=== PATIENT | male | born 1945 | race Caucasian/White ===

== ENCOUNTER 2019-06-01 00:36 | Inpatient (IN) | payer MEDICARE ==
[2019-06-01] MEDS ORDERED: ONDANSETRON 4 MG/2 ML VIAL IVP STA (01:20)
[2019-06-01] MEDS ORDERED: HYDROmorphone 0.5 MG/0.5 ML SYRINGE IVP STA (01:20)
[2019-06-01] MEDS ORDERED: SODIUM CHLORIDE 0.9% 1,000 ML IV STA (01:20)
[2019-06-01 02:12] LABS: Basophils # (A) 0.1 k/uL (0-0.2); Basophils % (A) 1 %; Eosinophils # (A) 0.4 k/uL (0-0.7); Eosinophils % (A) 3 %; HCT 44.8 % (39.0-53.0); HGB 14.1 gm/dL (13.0-17.5); Lymphocytes # (A) 1.7 k/uL (1.0-4.8); Lymphocytes % (A) 14 %; MCH 31.8 pg (25.0-35.0); MCHC 31.4 g/dL (31.0-37.0); MCV 101.2 fL (80.0-100.0); Macrocytosis Slight; Mean Platelet Volume 6.9; Monocytes # (A) 0.7 k/uL (0-1.0); Monocytes % (A) 6 %; Neutrophils # (A) 8.9 k/uL (1.3-7.7); Neutrophils % (A) 75 %; Platelet Count 291 k/uL (150-450); RBC 4.43 m/uL (4.30-5.90); WBC 11.9 k/uL (3.8-10.6)
[2019-06-01 02:20] LABS: Appearance,Urine Clear (Clear); Bilirubin,Urine Negative (Negative); Blood,Urine Negative (Negative); Color,Urine Light Yellow; Glucose,Urine (UA) Negative (Negative); Hyaline Casts,Urine 4 /lpf (0-2); Ketones,Urine Negative (Negative); Leukocyte Esterase,Urine Trace (Negative); Mucus,Urine Rare /hpf; Nitrite,Urine Negative (Negative); PH, Urine 6.5 (5.0-8.0); Protein,Urine Negative (Negative); RBC,Urine 1 /hpf (0-5); Specific Gravity,Urine 1.009 (1.001-1.035); Squamous Epithelial Cell,Urine 1 /hpf (0-4); Urobilinogen,Urine <2.0 mg/dL (<2.0); WBC,Urine 2 /hpf (0-5)
[2019-06-01 02:22] LABS: African American GFR (CKD) >90 (>60 ml/min/1.73 sqM); Amylase 91 U/L (30-110); Anion Gap 11 mmol/L; Blood Urea Nitrogen 17 mg/dL (9-20); Calcium 9.6 mg/dL (8.4-10.2); Carbon Dioxide 22 mmol/L (22-30); Chloride 102 mmol/L (98-107); Glucose 112 mg/dL (74-99); Sodium 135 mmol/L (137-145); Total Bilirubin 0.5 mg/dL (0.2-1.3)
[2019-06-01 02:33] LABS: ALT 24 U/L (21-72); AST 29 U/L (17-59); Albumin 4.2 g/dL (3.5-5.0); Alkaline Phosphatase 53 U/L (38-126); Potassium 4.6 mmol/L (3.5-5.1); Total Protein 7.1 g/dL (6.3-8.2)
--- NOTE | 2019-06-01 03:04 | CT ---
EXAMINATION TYPE: CT abdomen pelvis w con DATE OF EXAM: 06/01/2019 COMPARISON: 05/30/2014 HISTORY: Abd pain CT DLP: 940.30 mGycm Automated exposure control for dose reduction was used. TECHNIQUE: Helical acquisition of images was performed from the lung bases through the pelvis. CONTRAST: Performed without Oral Contrast and with IV Contrast, patient injected with 100 mL of Isovue 300. FINDINGS: There is minimal subsegmental atelectasis right lung base. There is no pleural effusion. Heart size i s normal. There is a 1 cm cyst left lobe of the liver. The bile ducts are not dilated. Gallbladder ap pears normal. Stomach is mildly dilated with fluid. Spleen appears normal. There is no pancreatic mas s. There is no adrenal mass. Kidneys show satisfactory contrast opacification. There is no hydronephr osis. Bladder distends smoothly. There is dense prostatic calcification. There is left hip prosthesis . There are air bubbles in the right inguinal region. Is not clear if there is small bowel herniation . I do not believe that there is an incarcerated inguinal hernia. There is slight increased density o n the right side in the right inguinal region. There are numerous dilated fluid-filled loops of small bowel in the mid abdomen. Small bowel dilated up to 3.5 cm. Terminal ileum is not dilated. Appendix appears normal. Transition point not definitely identified. There is no evidence of pneumoperitoneum. There is no ascites. There is 20% depression s uperior endplate of L1 vertebra that appears old. There is slight flattening of the articular surface of the right femoral head consistent with chronic avascular necrosis. There is right hip joint space narrowing. IMPRESSION: THERE IS DILATED SMALL BOWEL SUGGESTIVE OF A DISTAL MECHANICAL SMALL BOWEL OBSTRUCTION. TRANSITION PO INT NOT DEFINITELY LOCALIZED. NORMAL APPENDIX. Increased right inguinal density could relate to scar tissue and hernia surgery. Correlation with history needed.
--- NOTE | 2019-06-01 04:01 | ED ---
Abdominal Pain HPI - General Source: patient Mode of arrival: ambulatory Limitations: no limitations <Iona Hugo - Last Filed: 06/01/19 03:58> <Christa Galvan - Last Filed: 06/01/19 06:25> - General Chief Complaint: Abdominal Pain Stated Complaint: Abdominal Pain Time Seen by Provider: 06/01/19 00:53 - History of Present Illness Initial Comments: 74-year-old male patient presents to the emergency department today for evaluation of abdominal pain. Patient states that over the last couple of days he has been having increasing abdominal pain. States he did give himself a suppository today and had a bowel movement. States he has been passing flatus. States he has had some nausea but no vomiting. States he is eating without difficulty. Patient underwent right inguinal hernia surgery 2 weeks ago in [place] with a Dr. Eli. He denies any fever or chills. Denies any pain or drainage from the incision site. Patient denies any recent rash, shortness breath, chest pain, back pain, numbness, tingling, dizziness, weakness, hematuria, dysuria, urinary urgency, urinary frequency, headache, visual changes, or any other complaints. (Iona Hugo) - Related Data Home Medications Medication Instructions Recorded Confirmed Alfuzosin HCl [Alfuzosin HCl ER] 10 mg PO HS 03/28/16 06/01/19 Aspirin [Adult Low Dose Aspirin EC] 81 mg PO DAILY 03/28/16 06/01/19 Calcium Carbonate [Calcium] 600 mg PO DAILY 03/28/16 06/01/19 Finasteride 5 mg PO HS 03/28/16 06/01/19 Glucosam/Chond/Hyalu/Cf Borate 1 tab PO DAILY 03/28/16 06/01/19 [Move Free Joint Health Tablet] Lisinopril 40 mg PO QAM 03/28/16 06/01/19 Allergies Allergy/AdvReac Type Severity Reaction Status Date / Time No Known Allergies Allergy Verified 03/31/16 09:13 Review of Systems ROS Other: All systems not noted in ROS Statement are negative. <Iona Hugo - Last Filed: 06/01/19 03:58> ROS Other: All systems not noted in ROS Statement are negative. <Christa Galvan - Last Filed: 06/01/19 06:25> ROS Statement: Those systems with pertinent positive or pertinent negative responses have been documented in the HPI. Past Medical History Past Medical History: Hyperlipidemia, Hypertension, Prostate Disorder History of Any Multi-Drug Resistant Organisms: None Reported Past Surgical History: Hernia Repair, Joint Replacement Additional Past Surgical History / Comment(s): TOTAL LEFT HIP Past Anesthesia/Blood Transfusion Reactions: No Reported Reaction Past Psychological History: No Psychological Hx Reported Smoking Status: Former smoker Past Alcohol Use History: Daily Past Drug Use History: None Reported <Iona Hugo - Last Filed: 06/01/19 03:58> General Exam Limitations: no limitations General appearance: alert, in no apparent distress, other (This is a well- developed, well-nourished elderly male patient in no acute distress. Vital sign s upon presentation are temperature 97.4F, pulse 104, respirations 20, blood pressure 105/74, pulse ox 99% on room air.) Eye exam: Present: normal appearance, PERRL, EOMI. Absent: scleral icterus, conjunctival injection, periorbital swelling ENT exam: Present: normal exam, normal oropharynx, mucous membranes moist Respiratory exam: Present: normal lung sounds bilaterally. Absent: respiratory distress, wheezes, rales, rhonchi, stridor Cardiovascular Exam: Present: regular rate, normal rhythm, normal heart sounds. Absent: systolic murmur, diastolic murmur, rubs, gallop, clicks GI/Abdominal exam: Present: soft, tenderness, normal bowel sounds. Absent: distended, guarding, rebound, rigid Neurological exam: Present: alert, oriented X3, CN II-XII intact Psychiatric exam: Present: normal affect, normal mood Skin exam: Present: warm, dry, intact, normal color. Absent: rash <Iona Hugo - Last Filed: 06/01/19 03:58> Course Vital Signs 06/01/19 06/01/19 06/01/19 00:45 01:45 03:03 Temperature 97.4 F L 97.2 F L 97.1 F L Pulse Rate 104 H 83 77 Respiratory 20 16 16 Rate Blood Pressure 105/74 112/74 123/74 O2 Sat by Pulse 99 97 94 L Oximetry 06/01/19 06/01/19 04:32 05:45 Temperature 97.5 F L 97.9 F Pulse Rate 85 73 Respiratory 16 16 Rate Blood Pressure 127/71 116/79 O2 Sat by Pulse 96 96 Oximetry Medical Decision Making - Lab Data Result diagrams: 06/01/19 01:03 06/01/19 01:03 - Radiology Data Radiology results: report reviewed, image reviewed <Iona Hugo Pily - Last Filed: 06/01/19 03:58> - Lab Data Result diagrams: 06/01/19 01:03 06/01/19 01:03 <Christa Galvan - Last Filed: 06/01/19 06:25> - Medical Decision Making I personally saw and evaluated this patient. This is a merged [facility] 74-year-old gentleman who underwent an inguinal hernia repair while on vacation 2 weeks ago [place] this again. Patient presenting today with abdominal pain, labs are relatively unremarkable the computed tomography scan is suggestive of a possible distal mechanical small bowel obstruction. No transition point is identified. Patient is not vomiting. At this point I do feel the patient can be treated conservatively with nothing by mouth and IV fluids. Patient is agreeable to this. Patient would prefer very much not to be transferred to [place] as he doesn't have any established care at their aside from the emergency surgery he had 2 weeks ago. Patient care was discussed with surgeon acute care occupational therapist Dr. Seo who agrees with plan for admission here to medicine he will be on consult for any surgical needs. Multiple attempts were made to contact Dr. Giuseppe Crawford, however we were unsuccessful, therefore the patient will be admitted to the [facility] hospitalist group (Christa Galvan) - Lab Data Lab Results 06/01/19 06/01/19 06/01/19 Range/Units 01:03 01:03 01:03 WBC 11.9 H (3.8-10.6) k/uL RBC 4.43 (4.30-5.90) m/uL Hgb 14.1 (13.0-17.5) gm/dL Hct 44.8 (39.0-53.0) % MCV 101.2 H (80.0-100.0) fL MCH 31.8 (25.0-35.0) pg MCHC 31.4 (31.0-37.0) g/dL RDW 13.0 (11.5-15.5) % Plt Count 291 (150-450) k/uL Neutrophils % 75 % Lymphocytes % 14 % Monocytes % 6 % Eosinophils % 3 % Basophils % 1 % Neutrophils # 8.9 H (1.3-7.7) k/uL Lymphocytes # 1.7 (1.0-4.8) k/uL Monocytes # 0.7 (0-1.0) k/uL Eosinophils # 0.4 (0-0.7) k/uL Basophils # 0.1 (0-0.2) k/uL Macrocytosis Slight Sodium 135 L (137-145) mmol/L Potassium 4.6 (3.5-5.1) mmol/L Chloride 102 (98-107) mmol/L Carbon Dioxide 22 (22-30) mmol/L Anion Gap 11 mmol/L BUN 17 (9-20) mg/dL Creatinine 0.75 (0.66-1.25) mg/dL Est GFR (CKD-EPI)AfAm >90 (>60 ml/min/1.73 sqM) Est GFR (CKD-EPI)NonAf 90 (>60 ml/min/1.73 sqM) Glucose 112 H (74-99) mg/dL Plasma Lactic Acid Jovanny 1.0 (0.7-2.0) mmol/L Calcium 9.6 (8.4-10.2) mg/dL Total Bilirubin 0.5 (0.2-1.3) mg/dL AST 29 (17-59) U/L ALT 24 (21-72) U/L Alkaline Phosphatase 53 (38-126) U/L Total Protein 7.1 (6.3-8.2) g/dL Albumin 4.2 (3.5-5.0) g/dL Amylase 91 (30-110) U/L Lipase 114 (23-300) U/L Urine Color Urine Appearance (Clear) Urine pH (5.0-8.0) Ur Specific [place] (1.001-1.035) Urine Protein (Negative) Urine Glucose (UA) (Negative) Urine Ketones (Negative) Urine Blood (Negative) Urine Nitrite (Negative) Urine Bilirubin (Negative) Urine Urobilinogen (<2.0) mg/dL Ur Leukocyte Esterase (Negative) Urine RBC (0-5) /hpf Urine WBC (0-5) /hpf Ur Squamous Epith Cells (0-4) /hpf Hyaline Casts (0-2) /lpf Urine Mucus (None) /hpf 06/01/19 Range/Units 01:03 WBC (3.8-10.6) k/uL RBC (4.30-5.90) m/uL Hgb (13.0-17.5) gm/dL Hct (39.0-53.0) % MCV (80.0-100.0) fL MCH (25.0-35.0) pg MCHC (31.0-37.0) g/dL RDW (11.5-15.5) % Plt Count (150-450) k/uL Neutrophils % % Lymphocytes % % Monocytes % % Eosinophils % % Basophils % % Neutrophils # (1.3-7.7) k/uL Lymphocytes # (1.0-4.8) k/uL Monocytes # (0-1.0) k/uL Eosinophils # (0-0.7) k/uL Basophils # (0-0.2) k/uL Macrocytosis Sodium (137-145) mmol/L Potassium (3.5-5.1) mmol/L Chloride (98-107) mmol/L Carbon Dioxide (22-30) mmol/L Anion Gap mmol/L BUN (9-20) mg/dL Creatinine (0.66-1.25) mg/dL Est GFR (CKD-EPI)AfAm (>60 ml/min/1.73 sqM) Est GFR (CKD-EPI)NonAf (>60 ml/min/1.73 sqM) Glucose (74-99) mg/dL Plasma Lactic Acid Jovanny (0.7-2.0) mmol/L Calcium (8.4-10.2) mg/dL Total Bilirubin (0.2-1.3) mg/dL AST (17-59) U/L ALT (21-72) U/L Alkaline Phosphatase (38-126) U/L Total Protein (6.3-8.2) g/dL Albumin (3.5-5.0) g/dL Amylase (30-110) U/L Lipase (23-300) U/L Urine Color Light Yellow Urine Appearance Clear (Clear) Urine pH 6.5 (5.0-8.0) Ur Specific [place] 1.009 (1.001-1.035) Urine Protein Negative (Negative) Urine Glucose (UA) Negative (Negative) Urine Ketones Negative (Negative) Urine Blood Negative (Negative) Urine Nitrite Negative (Negative) Urine Bilirubin Negative (Negative) Urine Urobilinogen <2.0 (<2.0) mg/dL Ur Leukocyte Esterase Trace H (Negative) Urine RBC 1 (0-5) /hpf Urine WBC 2 (0-5) /hpf Ur Squamous Epith Cells 1 (0-4) /hpf Hyaline Casts 4 H (0-2) /lpf Urine Mucus Rare H (None) /hpf - Radiology Data CT abdomen and pelvis with contrast is obtained. Report was reviewed in its entirety. Impression by Dr. Potts shows dilated small bowel suggestive of a distal mechanical small bowel obstruction. Transition point not definitely localize. Normal appendix. Increase right inguinal density could relate to sca r tissue and hernia surgery. Correlation with history needed. (Iona Hugo) Disposition <Iona Hugo - Last Filed: 06/01/19 03:58> Is patient prescribed a controlled substance at d/c from ED?: No <Christa Galvan - Last Filed: 06/01/19 06:25> Clinical Impression: SBO (small bowel obstruction) Disposition: ADMITTED IP TO THIS HOSP Condition: Stable Referrals: Diamond Crawford DO [Primary Care Provider] - 1-2 days
[2019-06-01] MEDS ORDERED: HYDROmorphone 1 MG/ML 1 ML SYRINGE IVP STA (04:26)
[2019-06-01] MEDS ORDERED: ONDANSETRON 4 MG/2 ML VIAL IVP PRN (06:04)
[2019-06-01] MEDS ORDERED: NALOXONE 0.4 MG/ML 1 ML VIAL IV PRN (06:04)
[2019-06-01] MEDS ORDERED: HYDROmorphone 0.5 MG/0.5 ML SYRINGE IVP PRN (06:04)
[2019-06-01] MEDS: SODIUM CHLORIDE 0.9% 1,000 ML IV SCH ×2 (06:18→16:31)
--- NOTE | 2019-06-01 09:05 | P.GSCN ---
History of Present Illness Consult date: 06/01/19 Reason for Consult: Small bowel obstruction History of present illness: This is a 74-year-old male who was admitted through the emergency room with complaints of a small bowel obstruction. Patient underwent previous right open inguinal hernia surgery in [facility] approximately 2 weeks ago. He states that he had an incarcerated hernia while playing golf at that time. Patient states he has had some abdominal pain distention and nausea last night. His CAT scan shows evidence of a possible partial small bowel obstruction. Patient had a bowel movement yesterday. Past Medical History Past Medical History: Hyperlipidemia, Hypertension, Prostate Disorder History of Any Multi-Drug Resistant Organisms: None Reported Past Surgical History: Hernia Repair, Joint Replacement Additional Past Surgical History / Comment(s): TOTAL LEFT HIP Past Anesthesia/Blood Transfusion Reactions: No Reported Reaction Past Psychological History: No Psychological Hx Reported Smoking Status: Former smoker Past Alcohol Use History: Daily Additional Past Alcohol Use History / Comment(s): DRINKS BEER DAILY. SMOKED FOR OVER 40 YRS, 1PPD, QUIT SEVERAL YEARS AGO. Past Drug Use History: None Reported - Past Family History Mother Family Medical History: Cancer Additional Family Medical History / Comment(s): lung cancer Medications and Allergies Home Medications Medication Instructions Recorded Confirmed Type Alfuzosin HCl [Alfuzosin HCl ER] 10 mg PO HS 03/28/16 06/01/19 History Aspirin [Adult Low Dose Aspirin EC] 81 mg PO DAILY 03/28/16 06/01/19 History Calcium Carbonate [Calcium] 600 mg PO DAILY 03/28/16 06/01/19 History Finasteride 5 mg PO HS 03/28/16 06/01/19 History Lisinopril 40 mg PO QAM 03/28/16 06/01/19 History Allergies Allergy/AdvReac Type Severity Reaction Status Date / Time No Known Allergies Allergy Verified 06/01/19 07:48 Surgical - Exam Vital Signs Temp Pulse Resp BP Pulse Ox 97.4 F L 104 H 20 105/74 99 06/01/19 00:45 06/01/19 00:45 06/01/19 00:45 06/01/19 00:45 06/01/19 00:45 - General well developed, well nourished, no distress - Eyes PERRL - ENT normal pinna - Neck no masses - Respiratory normal expansion - Cardiovascular Rhythm: regular - Abdomen Healing incision right inguinal area Abdomen: soft, non tender Results - Labs 06/01/19 01:03 06/01/19 01:03 Abnormal Lab Results - Last 24 Hours (Table) 06/01/19 06/01/19 06/01/19 Range/Units 01:03 01:03 01:03 WBC 11.9 H (3.8-10.6) k/uL MCV 101.2 H (80.0-100.0) fL Neutrophils # 8.9 H (1.3-7.7) k/uL Sodium 135 L (137-145) mmol/L Glucose 112 H (74-99) mg/dL Ur Leukocyte Esterase Trace H (Negative) Hyaline Casts 4 H (0-2) /lpf Urine Mucus Rare H (None) /hpf Diabetes panel 06/01/19 Range/Units 01:03 Sodium 135 L (137-145) mmol/L Potassium 4.6 (3.5-5.1) mmol/L Chloride 102 (98-107) mmol/L Carbon Dioxide 22 (22-30) mmol/L BUN 17 (9-20) mg/dL Creatinine 0.75 (0.66-1.25) mg/dL Glucose 112 H (74-99) mg/dL Calcium 9.6 (8.4-10.2) mg/dL AST 29 (17-59) U/L ALT 24 (21-72) U/L Alkaline Phosphatase 53 (38-126) U/L Total Protein 7.1 (6.3-8.2) g/dL Albumin 4.2 (3.5-5.0) g/dL Calcium panel 06/01/19 Range/Units 01:03 Calcium 9.6 (8.4-10.2) mg/dL Albumin 4.2 (3.5-5.0) g/dL Pituitary panel 06/01/19 Range/Units 01:03 Sodium 135 L (137-145) mmol/L Potassium 4.6 (3.5-5.1) mmol/L Chloride 102 (98-107) mmol/L Carbon Dioxide 22 (22-30) mmol/L BUN 17 (9-20) mg/dL Creatinine 0.75 (0.66-1.25) mg/dL Glucose 112 H (74-99) mg/dL Calcium 9.6 (8.4-10.2) mg/dL Adrenal panel 06/01/19 Range/Units 01:03 Sodium 135 L (137-145) mmol/L Potassium 4.6 (3.5-5.1) mmol/L Chloride 102 (98-107) mmol/L Carbon Dioxide 22 (22-30) mmol/L BUN 17 (9-20) mg/dL Creatinine 0.75 (0.66-1.25) mg/dL Glucose 112 H (74-99) mg/dL Calcium 9.6 (8.4-10.2) mg/dL Total Bilirubin 0.5 (0.2-1.3) mg/dL AST 29 (17-59) U/L ALT 24 (21-72) U/L Alkaline Phosphatase 53 (38-126) U/L Total Protein 7.1 (6.3-8.2) g/dL Albumin 4.2 (3.5-5.0) g/dL Assessment and Plan Assessment: Ileus versus partial small bowel obstruction. Patient be observed. He'll remain on ice chips today.
--- NOTE | 2019-06-01 09:12 | P.HPIM ---
History of Present Illness 74-year-old male came in with a diffuse nonspecific mild to moderate abdominal pain and diarrhea with some nausea without any vomiting. Patient had a CAT scan of the abdomen which was read as mechanical bowel obstruction clinically patient appears to have ileus. Patient was constipated for 2 days after his right inguinal hernia repair and after that patient try to use any mask started having diarrhea patient denied any fever chills body aches. Patient presently doesn't have any nausea patient will be started on ice chips and popsicles as recommended by surgery patient denied any dysuria patient denied any cough. Review of Systems REVIEW OF SYSTEMS: CONSTITUTIONAL: No fever, no malaise, no fatigue. HEENT: No recent visual problems or hearing problems. Denied any sore throat. CARDIOVASCULAR: No chest pain, orthopnea, PND, no palpitations, no syncope. PULMONARY: No shortness of breath, no cough, no hemoptysis. GASTROINTESTINAL: As mentioned in HPI NEUROLOGICAL: No headaches, no weakness, no numbness. HEMATOLOGICAL: Denies any bleeding or petechiae. GENITOURINARY: Denies any burning micturition, frequency, or urgency. MUSCULOSKELETAL/RHEUMATOLOGICAL: Denies any joint pain, swelling, or any muscle pain. ENDOCRINE: Denies any polyuria or polydipsia. The rest of the 14-point review of systems is negative. Past Medical History Past Medical History: Hyperlipidemia, Hypertension, Prostate Disorder History of Any Multi-Drug Resistant Organisms: None Reported Past Surgical History: Hernia Repair, Joint Replacement Additional Past Surgical History / Comment(s): TOTAL LEFT HIP Past Anesthesia/Blood Transfusion Reactions: No Reported Reaction Past Psychological History: No Psychological Hx Reported Smoking Status: Former smoker Past Alcohol Use History: Daily Additional Past Alcohol Use History / Comment(s): DRINKS BEER DAILY. SMOKED FOR OVER 40 YRS, 1PPD, QUIT SEVERAL YEARS AGO. Past Drug Use History: None Reported - Past Family History Mother Family Medical History: Cancer Additional Family Medical History / Comment(s): lung cancer Medications and Allergies Home Medications Medication Instructions Recorded Confirmed Type Alfuzosin HCl [Alfuzosin HCl ER] 10 mg PO HS 03/28/16 06/01/19 History Aspirin [Adult Low Dose Aspirin EC] 81 mg PO DAILY 03/28/16 06/01/19 History Calcium Carbonate [Calcium] 600 mg PO DAILY 03/28/16 06/01/19 History Finasteride 5 mg PO HS 03/28/16 06/01/19 History Lisinopril 40 mg PO QAM 03/28/16 06/01/19 History Allergies Allergy/AdvReac Type Severity Reaction Status Date / Time No Known Allergies Allergy Verified 06/01/19 07:48 Physical Exam Vitals: Vital Signs Temp Pulse Pulse Resp BP BP Pulse Ox 06/01/19 07:00 98.3 F 77 16 91/66 96 06/01/19 05:45 97.9 F 73 16 116/79 96 06/01/19 04:32 97.5 F L 85 16 127/71 96 06/01/19 03:03 97.1 F L 77 16 123/74 94 L 06/01/19 01:45 97.2 F L 83 16 112/74 97 06/01/19 00:45 97.4 F L 104 H 20 105/74 99 Intake and Output 05/31/19 06/01/19 06/01/19 22:59 06:59 14:59 Other: Weight 72.575 kg PHYSICAL EXAMINATION: GENERAL: The patient is alert and oriented x3, not in any acute distress. Well developed, well nourished. HEENT: Pupils are round and equally reacting to light. EOMI. No scleral icterus. No conjunctival pallor. Normocephalic, atraumatic. No pharyngeal erythema. No thyromegaly. CARDIOVASCULAR: S1 and S2 present. No murmurs, rubs, or gallops. PULMONARY: Chest is clear to auscultation, no wheezing or crackles. ABDOMEN: Eyelid distended no significant tenderness does have good bowel sounds MUSCULOSKELETAL: No joint swelling or deformity. EXTREMITIES: No cyanosis, clubbing, or pedal edema. NEUROLOGICAL: Gross neurological examination did not reveal any focal deficits. SKIN: No rashes. Results CBC & Chem 7: 06/01/19 01:03 06/01/19 01:03 Labs: Abnormal Lab Results - Last 24 Hours (Table) 06/01/19 06/01/19 06/01/19 Range/Units 01:03 01:03 01:03 WBC 11.9 H (3.8-10.6) k/uL MCV 101.2 H (80.0-100.0) fL Neutrophils # 8.9 H (1.3-7.7) k/uL Sodium 135 L (137-145) mmol/L Glucose 112 H (74-99) mg/dL Ur Leukocyte Esterase Trace H (Negative) Hyaline Casts 4 H (0-2) /lpf Urine Mucus Rare H (None) /hpf Thrombosis Risk Factor Assmnt - Choose All That Apply Any of the Below Risk Factors Present?: Yes Each Factor Represents 1 point: History of prior major surgery (<1month) Other Risk Factors: Yes Each Risk Factor Represents 2 Points: Age 61-74 years Thrombosis Risk Factor Assessment Total Risk Factor Score: 3 Thrombosis Risk Factor Assessment Level: Moderate Risk Assessment and Plan Plan: -Ileus: Patient will be treated conservatively with IV fluids this can you Dilaudid and patient was started on Toradol for pain as well as GI prophylaxis. Since patient has a bowel sounds I'm expecting his he is to improve by tomorrow. -Gastroesophageal reflux disease for which start him on high -Hypertension: Patient blood pressures low because of which for now and hold off his antidepressive medications these will be started depending on his vitals during this hospitalization -Benign prostatic hypertrophy -Hyperlipidemia 7 DVT prophylaxis early ambulation
[2019-06-01] MEDS: PANTOPRAZOLE 40 MG/10 ML VIAL IVP SCH (09:53)
[2019-06-01] MEDS: ASPIRIN 81 MG PO SCH (09:53)
[2019-06-01] MEDS: KETOROLAC 30 MG/ML 1 ML VIAL IVP PRN ×2 (10:23→19:43)
[2019-06-01] MEDS: TAMSULOSIN 0.4 MG CAP.ER.24H PO SCH (19:43)
[2019-06-01] MEDS: FINASTERIDE 5 MG TAB PO SCH (19:44)
[2019-06-02] MEDS: KETOROLAC 30 MG/ML 1 ML VIAL IVP PRN ×3 (02:04→20:59)
[2019-06-02] MEDS: SODIUM CHLORIDE 0.9% 1,000 ML IV SCH ×2 (02:05→11:11)
[2019-06-02 07:10] LABS: African American GFR (CKD) >90 (>60 ml/min/1.73 sqM); Anion Gap 6 mmol/L; Blood Urea Nitrogen 16 mg/dL (9-20); Calcium 8.4 mg/dL (8.4-10.2); Carbon Dioxide 22 mmol/L (22-30); Chloride 107 mmol/L (98-107); Glucose 85 mg/dL (74-99); Potassium 4.2 mmol/L (3.5-5.1); Sodium 135 mmol/L (137-145)
[2019-06-02 07:15] LABS: HCT 36.9 % (39.0-53.0); HGB 12.1 gm/dL (13.0-17.5); MCH 33.7 pg (25.0-35.0); MCHC 32.8 g/dL (31.0-37.0); MCV 102.7 fL (80.0-100.0); Macrocytosis Slight; Mean Platelet Volume 5.7; Platelet Count 221 k/uL (150-450); RBC 3.59 m/uL (4.30-5.90); RDW 12.5 % (11.5-15.5); WBC 5.9 k/uL (3.8-10.6)
[2019-06-02] MEDS: ASPIRIN 81 MG PO SCH (07:26)
[2019-06-02] MEDS: PANTOPRAZOLE 40 MG/10 ML VIAL IVP SCH (07:26)
--- NOTE | 2019-06-02 08:58 | P.PN ---
Progress Note - Text Progress Note Date: 06/02/19 The patient still has some complaints of crampy pain. He did have some flatus. On exam his vital signs are stable. His abdomen is soft. There is less distention than yesterday. There is no rebound or guarding. Possible partial small bowel charge. Patient will undergo computed tomography s can with oral contrast to evaluate his obstruction.
[2019-06-02] MEDS: IOPAMIDOL CONTRAST (ORAL USE) VIAL PO PRN ×2 (09:20→10:13)
--- NOTE | 2019-06-02 11:11 | CT ---
EXAMINATION TYPE: CT abdomen pelvis wo con DATE OF EXAM: 06/02/2019 COMPARISON: Previous study dated 06/01/2019 HISTORY: Small Bowel Obstruction CT DLP: 625 mGycm Automated exposure control for dose reduction was used. FINDINGS: There are tiny, bilateral pleural effusions, greater on the right than the left. There is a ssociated atelectatic change. Visualized portions of the lungs are otherwise clear. There is no peric ardial fluid. The heart is not enlarged. There is a small sliding hiatal hernia. Within the abdomen, there is a small amount of ascites. This has worsened slightly from the previous study. The liver, spleen and gallbladder are unremarkable. Both adrenal glands appear normal. There is no hydronephrosis or nephrolithiasis. Limited views of the pancreas are unremarkable. There is atheromatous irregularity and calcific of the visualized arterial tree. There is no signific ant retroperitoneal or inguinal adenopathy. There is a left hip prosthesis in place. This is causing streak artifact within the pelvis. There are multiple metallic densities in the region of the prostate gland. I could not exclude prostate seeds. There is no significant diverticular change and there is no radiographic evidence of diverticulitis. The appendix is not visualized with certainty. There continue to be dilated loops of small bowel distally. These have improved significantly from pr evious. There are several gas bubbles present in the right inguinal canal. There is a direct inguinal hernia on the left containing fat which is mildly indurated. There are moderate degenerative changes within the right hip. There is degenerative disc disease and facet arthropathy in the lower lumbar spine. IMPRESSION: 1. IMPROVEMENT IN THE DEGREE OF SMALL BOWEL DILATATION. 2. SMALL AMOUNT OF AIR WITHIN THE RIGHT INGUINAL CANAL OF QUESTIONABLE ETIOLOGY. 3. SMALL, BILATERAL EFFUSIONS. 4. SMALL AMOUNT OF ASCITES. 5. SMALL HIATAL HERNIA. 6. DIRECT INGUINAL HERNIA ON THE LEFT CONTAINING FAT ONLY.
--- NOTE | 2019-06-02 14:19 | P.PN ---
Subjective 69-year-old male was admitted for ileus passing as did not move his bowel get. Patient is on IV fluids which will discontinue patient is being started on liquid diet. Patient had a repeat CAT scan which showed improvement in his ileus Constitutional: Denied any fatigue denied any fever. Cardio vascular: denied any chest pain, palpitations Gastrointestinal denied any nausea vomiting Pulmonary: Denied any shortness of breath cough Neurologic denied any new focal deficits All inpatient medications were reviewed and appropriate changes in these medications as dictated in the interval history and assessment and plan. Objective - Vital Signs Vital signs: Vital Signs Temp 97.7 F 06/02/19 07:00 Pulse 73 06/02/19 07:00 Resp 16 06/02/19 07:00 BP 126/85 06/02/19 07:00 Pulse Ox 96 06/02/19 07:00 Intake & Output 06/01/19 06/02/19 06/02/19 18:59 06:59 18:59 Other: # Voids 2 2 - Exam PHYSICAL EXAMINATION: GENERAL: The patient is alert and oriented x3, not in any acute distress. Well developed, well nourished. HEENT: Pupils are round and equally reacting to light. EOMI. No scleral icterus. No conjunctival pallor. Normocephalic, atraumatic. No pharyngeal erythema. No thyromegaly. CARDIOVASCULAR: S1 and S2 present. No murmurs, rubs, or gallops. PULMONARY: Chest is clear to auscultation, no wheezing or crackles. ABDOMEN: Eyelid distended no significant tenderness does have good bowel sounds MUSCULOSKELETAL: No joint swelling or deformity. EXTREMITIES: No cyanosis, clubbing, or pedal edema. NEUROLOGICAL: Gross neurological examination did not reveal any focal deficits. SKIN: No rashes. - Labs CBC & Chem 7: 06/02/19 06:18 06/02/19 06:18 Labs: Abnormal Lab Results - Last 24 Hours (Table) 06/02/19 06/02/19 Range/Units 06:18 06:18 RBC 3.59 L (4.30-5.90) m/uL Hgb 12.1 L (13.0-17.5) gm/dL Hct 36.9 L (39.0-53.0) % MCV 102.7 H (80.0-100.0) fL Sodium 135 L (137-145) mmol/L Assessment and Plan Plan: -Ileus: Patient will be treated conservatively with IV fluids this on Toradol for pain as well as GI prophylaxis. Bowel sounds are present passing gas. -Gastroesophageal reflux disease -Hypertension: Patient blood pressures low because of which for now and hold off his up intensive medications these will be started depending on his vitals during this hospitalization -Benign prostatic hypertrophy -Hyperlipidemia 7 DVT prophylaxis early ambulation
[2019-06-02] MEDS: FINASTERIDE 5 MG TAB PO SCH (20:59)
[2019-06-02] MEDS: TAMSULOSIN 0.4 MG CAP.ER.24H PO SCH (20:59)
[2019-06-03] MEDS: PANTOPRAZOLE 40 MG/10 ML VIAL IVP SCH (08:12)
[2019-06-03] MEDS: ASPIRIN 81 MG PO SCH (08:12)
[2019-06-03] MEDS: KETOROLAC 30 MG/ML 1 ML VIAL IVP PRN (08:16)
--- NOTE | 2019-06-03 08:49 | P.PN ---
Subjective Progress Note Date: 06/03/19 74 yo M s/p R inguinal hernia repair 20 days ago who presents for colicky abdominal pain since Monday. 06/03. He reports tolerating clear liquid diet well, no nausea or vomiting yesterday. CT showed improvement of SBO. He continues to pass gas but no BM since admission. Feels abdominal distention is less. Continues to complain of mild dull waxing and waning abd pain. Objective - Vital Signs Vital signs: Vital Signs Temp 98.5 F 06/03/19 07:00 Pulse 63 06/03/19 07:00 Resp 16 06/03/19 07:00 BP 109/80 06/03/19 07:00 Pulse Ox 96 06/03/19 07:00 Intake & Output 06/02/19 06/03/19 06/03/19 18:59 06:59 18:59 Other: # Voids 3 3 - Exam Gen: well developed, well nourished, NAD CV: RRR, no murmur Lungs: Normal effort, clear throughout Abd: soft, mildly distended, no tenderness no organomegaly Ext: no cynanosis, clubbing or edema - Labs CBC & Chem 7: 06/02/19 06:18 06/02/19 06:18 Assessment and Plan (1) SBO (small bowel obstruction) Current Visit: Yes Status: Acute Code(s): K56.609 - UNSP INTESTNL OBST, UNSP TO PARTIAL VERSUS COMPLETE OBST SNOMED Code(s): 177394906 Plan: Continue toradol, zofran prn. Advance to full liquid diet. Surgery following, ap preciate recs
--- NOTE | 2019-06-03 10:01 | P.PN ---
Subjective Progress Note Date: 06/03/19 CHIEF COMPLAINT: Abdominal pain HISTORY OF PRESENT ILLNESS: Patient examined this morning at the bedside. He reports improved abdominal pain. He reports some discomfort to recent surgical site. Denies nausea or vomiting. Tolerating clear liquid diet. Passing flatus. Denies BM. Last BM was Monday per patient. PHYSICAL EXAM: VITAL SIGNS: Reviewed. GENERAL: Well-developed in no acute distress. HEENT: No sclera icterus. Extraocular movements grossly intact. Moist buccal mucosa. Head is atraumatic, normocephalic. ABDOMEN: Soft. Minimal distention. Nontender. Positive bowel sounds. NEUROLOGIC: Alert and oriented. Cranial nerves II through XII grossly intact. ASSESSMENT: 1. Small bowel obstruction versus ileus 2. Recent hernia repair PLAN: 1. Advance diet to full liquid 2. Await bowel function 3. Increase activity as tolerated Nurse practitioner note has been reviewed by physician. Signing provider agrees with the documented findings, assessment, and plan of care. Objective - Vital Signs Vital signs: Vital Signs Temp 98.5 F 06/03/19 07:00 Pulse 63 06/03/19 07:00 Resp 16 06/03/19 07:00 BP 109/80 06/03/19 07:00 Pulse Ox 96 06/03/19 07:00 Intake & Output 06/02/19 06/03/19 06/03/19 18:59 06:59 18:59 Other: Voiding Method Toilet Urinal # Voids 3 3 - Labs CBC & Chem 7: 06/02/19 06:18 06/02/19 06:18
[2019-06-03 14:46] VITALS: BP 106/72; PULSE 70; RESP 14; TEMP 97.5
--- NOTE | 2019-06-07 11:39 | P.DS ---
Providers Date of admission: 06/01/19 06:06 Expected date of discharge: 06/03/19 Attending physician: Giuseppe Crawford MD Consults: 06/01/19 06:04 Consult Physician Stat Consulting Provider: Adal Pozo Consult Reason/Comments: surgical mgmt of SBO Do you want consulting provider notified?: Already Contacted Primary care physician: Diamond Crawford - Discharge Diagnosis(es) (1) SBO (small bowel obstruction) Status: Acute Hospital Course: 74-year-old male came in with a diffuse nonspecific mild to moderate abdominal pain and diarrhea with some nausea without any vomiting. Patient had a CAT scan of the abdomen which was read as mechanical bowel obstruction clinically patient appears to have ileus. Patient was constipated for 2 days after his right inguinal hernia repair and after that patient try to use any mask started having diarrhea patient denied any fever chills body aches. Patient presently doesn't have any nausea patient will be started on ice chips and popsicles as recommended by surgery patient denied any dysuria patient denied any cough. Pt was admitted to medicine and surgery was consulted. he was treated conservatively and diet was advanced. On 06/03 he passed a formed BM and had tolerated meals without difficulty. He is discharged home in stable condition and will follow up with PCP within 1 week. Patient Condition at Discharge: Stable Plan - Discharge Summary Discharge Rx Participant: Yes New Discharge Prescriptions: Continue Lisinopril 40 mg PO QAM Finasteride 5 mg PO HS Calcium Carbonate [Calcium] 600 mg PO DAILY Aspirin [Adult Low Dose Aspirin EC] 81 mg PO DAILY Alfuzosin HCl [Alfuzosin HCl ER] 10 mg PO HS Discharge Medication List Alfuzosin HCl [Alfuzosin HCl ER] 10 mg PO HS 03/28/16 [History] Aspirin [Adult Low Dose Aspirin EC] 81 mg PO DAILY 03/28/16 [History] Calcium Carbonate [Calcium] 600 mg PO DAILY 03/28/16 [History] Finasteride 5 mg PO HS 03/28/16 [History] Lisinopril 40 mg PO QAM 03/28/16 [History] Follow up Appointment(s)/Referral(s): Diamond Crawford DO [Primary Care Provider] - 06/05/19 2:00 pm Adal Pozo MD [STAFF PHYSICIAN] - 06/06/19 3:50 pm (please make appt for ) Patient Instructions/Handouts: Low Fiber Diet (DC), Bowel Obstruction (DC) Activity/Diet/Wound Care/Special Instructions: Regular Diet Discharge Disposition: HOME SELF-CARE
== END 2019-06-03 19:10 | disposition home or self-care (01) | DRG 390 ==
LOC: EC 00:36 → 4SSUR 06:06
PROVIDERS: ADMIT Family Medicine; ATTEND Family Medicine
DX: K56.609 Unspecified intestinal obstruction, unspecified as to partial versus complete obstruction (principal); E78.5 Hyperlipidemia, unspecified; I10 Essential (primary) hypertension; K21.9 Gastro-esophageal reflux disease without esophagitis; N40.0 Benign prostatic hyperplasia without lower urinary tract symptoms; Z79.82 Long term (current) use of aspirin; Z79.899 Other long term (current) drug therapy; Z87.891 Personal history of nicotine dependence; Z80.1 Family history of malignant neoplasm of trachea, bronchus and lung
CPT/HCPCS: 36415; 74176; 74177; 80048; 80053; 81001; 82150; 83605; 83690; 85025; 85027; 96361; 96374; 96375; 96376; 99285

== ENCOUNTER → 2019-06-17 | Day surgery (SDC) | payer MEDICARE ==
[2019-06-13 15:55] VITALS: BMI 23.6
[~2019-06-17] MED LIST: BUPIVACAINE (PF) 0.25% 30 ML VIAL SQ ONE; DEXAMETHASONE SOD PHOSPHATE 10 MG/ML 1 ML VIAL IV ONE; DEXAMETHASONE SOD PHOSPHATE 4 MG/ML 1 ML VIAL ONE; GLYCOPYRROLATE 0.2 MG/ML 2 ML VIAL ONE; HEPARIN SODIUM,PORCINE 5,000 UNIT/ML 1 ML VIAL SQ ONE; HYDROcodone/APAP 5-325MG 1 EACH TAB PO ONE; LACTATED RINGERS 1,000 ML IV ONE; LIDOCAINE 1% 20 ML VIAL (10MG/ML) FOR IV START INTRADERMA PRN; LIDOCAINE 1% INJ 10MG/ML (20 ML MDV) ONE; MIDAZOLAM 2 MG/2 ML VIAL IV ONE; NEOSTIGMINE 1 MG/ML 10 ML VIAL ONE; ONDANSETRON 4 MG/2 ML VIAL IVP ONE; PROPOFOL 10 MG/ML 20 ML VIAL IV ONE; ROCURONIUM BROMIDE 10 MG/ML 10 ML VIAL IV ONE; ROPIVACAINE 5 MG/ML 30 ML VIAL ONE; SUCCINYLCHOLINE CHLORIDE 100 MG/5 ML SYR IV ONE; ePHEDrine SULFATE/0.9% NACL/PF 50 MG/5 ML SYRINGE IV ONE; fentaNYL (PF) 50 MCG/ML 2 ML AMP IV ONE; fentaNYL (PF) 50 MCG/ML 2 ML AMP ONE
[2019-06-17] MEDS: LACTATED RINGERS 1,000 ML IV SCH (07:52)
--- NOTE | 2019-06-17 10:15 | P.GSHP ---
History of Present Illness H&P Date: 06/17/19 Chief Complaint: Left inguinal hernia Asst. 4-year-old male who presents today for laparoscopic robotic repair of left inguinal hernia. Patient's had a previous open hernia repair on the left side before. His recent CAT scan shows evidence of a direct left inguinal hernia Past Medical History Past Medical History: Hyperlipidemia, Hypertension, Prostate Disorder History of Any Multi-Drug Resistant Organisms: None Reported Past Surgical History: Hernia Repair, Joint Replacement Additional Past Surgical History / Comment(s): TOTAL LEFT HIP, 05/13/19 rt in guinal hernia repair Past Anesthesia/Blood Transfusion Reactions: No Reported Reaction Past Psychological History: No Psychological Hx Reported Smoking Status: Former smoker Past Alcohol Use History: Daily Additional Past Alcohol Use History / Comment(s): DRINKS BEER DAILY. SMOKED FOR OVER 40 YRS, 1PPD, QUIT SEVERAL YEARS AGO. Past Drug Use History: None Reported - Past Family History Mother Family Medical History: Cancer Additional Family Medical History / Comment(s): lung cancer Medications and Allergies Home Medications Medication Instructions Recorded Confirmed Type Alfuzosin HCl [Alfuzosin HCl ER] 10 mg PO HS 03/28/16 06/17/19 History Aspirin [Adult Low Dose Aspirin EC] 81 mg PO DAILY 03/28/16 06/17/19 History Calcium Carbonate [Calcium] 600 mg PO DAILY 03/28/16 06/17/19 History Finasteride 5 mg PO HS 03/28/16 06/17/19 History Lisinopril 40 mg PO QAM 03/28/16 06/17/19 History Allergies Allergy/AdvReac Type Severity Reaction Status Date / Time No Known Allergies Allergy Verified 06/17/19 07:41 Surgical - Exam Vital Signs Temp Pulse Resp BP Pulse Ox 97.6 F 78 16 110/68 94 L 06/17/19 07:49 06/17/19 07:49 06/17/19 07:49 06/17/19 07:49 06/17/19 07:49 - General well developed, well nourished, no distress - Eyes PERRL - ENT normal pinna - Neck no masses - Respiratory normal expansion - Cardiovascular Rhythm: regular - Abdomen Abdomen: soft, non tender Hernia: inguinal (Reducible left inguinal hernia) Assessment and Plan Assessment: Left inguinal hernia. We'll perform laparoscopic robotic-assisted repair.
--- NOTE | 2019-06-17 11:02 | P.ANPRN ---
Procedure Note - Anesthesia - Nerve Block Performed Left Transversus Abdominis Single Time Out Performed: Yes Date of Procedure: 06/17/19 Procedure Start Time: :14 Procedure Stop Time: : Location of Patient Procedure: PreOp Indication: Acute Post-Operative Pain, Requested by Surgeon Specifically requested for management of pain by DrMichele: Adal Pozo Sedation Type: Sedate with meaningful contact maintained Preparation: Sterile Prep Position: Supine Catheter: None Needle Types: Pajunk Needle Gauge: 18 Ultrasound used to visualize needle placement: Yes Ultrasound used to observe medication spread: Yes Injectate: 0.5% Ropivacaine (see comment for volume) (25 cc) Blood Aspirated: No Pain Paresthesia on Injection Noted: No Resistance on Injection: Normal Image Stored and Saved: Yes Events: Uneventful and Well Tolerated
--- NOTE | 2019-06-17 11:31 | P.OP ---
Date of Procedure: 06/17/19 Preoperative Diagnosis: Left inguinal hernia Postoperative Diagnosis: Left inguinal hernia Procedure(s) Performed: Laparoscopic robotic-assisted repair of left inguinal hernia Anesthesia: JOHANNY Surgeon: Adal Pozo Estimated Blood Loss (ml): 5 Pathology: none sent Condition: stable Disposition: PACU Description of Procedure: The patient was placed on the operating table in the supine position. The patient received general anesthesia. The patient's abdomen was prepped and draped in usual sterile fashion. The skin was anesthetized 1% local Xylocaine at the incision sites. Using an 11 blade a skin incision was made at the umbilicus. The fascia was grasped with a [place] and then the peritoneal cavity was entered with the Veress needle. Position of the Veress needle was confirmed with a positive drop test. After adequate insufflation a 5 mm trocar was placed into the peritoneal cavity. The Laparoscope was placed the peritoneal cavity. And a robotic 8 mm trocar was placed in the right lateral position and then another 8 mm robotic trochars placed in the left lateral position. The original 5 mm trocar was exchanged for a 12 mm trocar. The patient was placed in reverse Trendelenburg and then the patient was docked to the robot. Next the peritoneum over top of the left inguinal hernia was incised and then using blunt and sharp dissection and electrocautery the hernia sac was dissected free from the floor of the inguinal canal. The hernia sac was completely reduced into the peritoneal cavity. And then using the Pro dress marker mesh the hernia was repaired. The peritoneum was then sutured with 2-0V lock suture. The patient was then undocked the robot. The needle was withdrawn from the peritoneal cavity. The umbilical trocar site was closed with 0 Ethibond suture. The skin was closed interrupted 3-0 Monocryl suture. Dermabond dressing was ap plied. Patient was sent to recovery in stable condition.
[2019-06-17 11:33] VITALS: TEMP 97.4
[2019-06-17] MEDS: HYDROmorphone 0.5 MG/0.5 ML SYRINGE IVP PRN ×4 (11:40→12:09)
[2019-06-17 13:25] VITALS: RESP 16
[2019-06-17 15:20] VITALS: PULSE 64
[2019-06-17 16:04] VITALS: BP 102/67
== END ==
LOC: OR 07:30
PROVIDERS: ATTEND Surgery
DX: K40.90 Unilateral inguinal hernia, without obstruction or gangrene, not specified as recurrent (principal); E78.5 Hyperlipidemia, unspecified; I10 Essential (primary) hypertension; N42.9 Disorder of prostate, unspecified; Z87.891 Personal history of nicotine dependence; Z96.642 Presence of left artificial hip joint; Z79.82 Long term (current) use of aspirin; Z79.899 Other long term (current) drug therapy
CPT/HCPCS: 49650; 64486; C1781; J2250; J1644; J1100 ×2; J2710; J0690; J2405; J2001; J3010; J2795; J0330; J2704; J1170; 64488

== ENCOUNTER → 2020-04-28 | Outpatient (CLI) | payer MEDICARE ==
--- NOTE | 2020-04-28 11:10 | CTL ---
EXAMINATION TYPE: CT Low Dose Lung DATE OF EXAM ORDERED: 04/28/2020 HISTORY: 75-year-old male personal history of tobacco use. Lung cancer screening CT DLP: 95.[address] CTDI: 2.6 mGy Automated exposure control for dose reduction was used. SCREENING VISIT: Baseline COMPARISON: None TECHNIQUE: Low dose computed tomography scan was performed through the chest. Coronal and sagittal re constructions performed. CT DIAGNOSTIC QUALITY: Satisfactory FINDINGS: Heart normal size without pericardial effusion. Scattered mild to moderate coronary artery calcificat ions. Mild atherosclerotic calcifications throughout the thoracic aorta more moderate at the arch vessel or igins. Ectatic upper descending thoracic aorta 3.2 cm and mild aneurysm lower descending thoracic aor ta 3.1 cm. No thoracic lymphadenopathy by CT size criteria. Biapical pleural parenchymal scarring. Mild centrilobular emphysema. Mild diffuse bronchial wall thic kening. 4 mm subpleural posterior right upper lobe pulmonary nodule, axial image 37. 4 mm subpleural pulmonary nodule posterolateral right upper lobe, axial image 105. No consolidation or pleural effusion. Mild to moderate stool in the visualized upper abdomen. Bones: Some degenerative change of both shoulders. Facet arthropathy throughout the mid and lower tho racic spine. Chronic appearing superior endplate deformity of L1. Mild degenerative disc disease lowe r thoracic spine. No osseous destructive process. IMPRESSION: 1. BI-RADS 2 - benign; a couple 4 mm pulmonary nodules on baseline screening. 2. COPD with mild emphysema. 3. Ectatic descending thoracic aorta measuring up to 3.2 cm. RECOMMENDATION: 1. Continue annual low-dose lung cancer screening CT. 2. Smoking cessation. FOLLOW UP CT CHEST RECOMMENDATION: [address] LUNG RAD: Lung-Rad 2 Benign Appearance or Behavior
== END | disposition home or self-care (01) ==
LOC: RADCTMAIN 09:15
PROVIDERS: ATTEND Family Medicine
DX: Z12.2 Encounter for screening for malignant neoplasm of respiratory organs (principal); J43.9 Emphysema, unspecified; R91.8 Other nonspecific abnormal finding of lung field; I77.810 Thoracic aortic ectasia; Z87.891 Personal history of nicotine dependence